=== PATIENT | female | born 1990 | race Caucasian/White ===

== ENCOUNTER 2018-09-09 18:40 | Emergency (ER) | payer OTHER ==
[2018-09-09] MEDS ORDERED: Dexamethasone 10 MG/ML VIAL ONE (19:14)
--- NOTE | 2018-09-09 19:51 | RAD ---
TWO VIEWS CHEST: 09/09/18 HISTORY: Asthma. PA and lateral views of the chest is obtained. The lungs are well aerated. No evidence of active intr athoracic disease seen. No evidence of effusions, pneumonia or pneumothorax seen. IMPRESSION: Unremarkable two views chest. POS: [facility]
== END 2018-09-09 20:27 | disposition home or self-care (01) ==
LOC: ERS 18:40
DX: J45.901 Unspecified asthma with (acute) exacerbation (principal); F41.9 Anxiety disorder, unspecified; F32.9 Major depressive disorder, single episode, unspecified; F17.210 Nicotine dependence, cigarettes, uncomplicated
CPT/HCPCS: 71046; 94640; 94760; J1100; J7620

== ENCOUNTER 2018-09-29 12:26 | Emergency (ER) | payer OTHER ==
[2018-09-29] MEDS ORDERED: Ibuprofen 200 MG TAB ONE (20:03)
[2018-09-29] MEDS ORDERED: Dexamethasone 4 mg/ml Vial ONE (20:03)
== END 2018-09-29 13:35 | disposition left against medical advice (07) ==
LOC: ERS 12:26
DX: Z53.21 Procedure and treatment not carried out due to patient leaving prior to being seen by health care provider (principal)
CPT/HCPCS: J1100

== ENCOUNTER 2018-09-29 18:12 | Emergency (ER) | payer OTHER | END 2018-09-29 20:14 | disposition home or self-care (01) | LOC: ERS 18:12 | DX: H66.92 Otitis media, unspecified, left ear (principal); J01.90 Acute sinusitis, unspecified; B96.89 Other specified bacterial agents as the cause of diseases classified elsewhere; E78.00 Pure hypercholesterolemia, unspecified; I10 Essential (primary) hypertension; J45.909 Unspecified asthma, uncomplicated; F41.9 Anxiety disorder, unspecified; F32.9 Major depressive disorder, single episode, unspecified; F17.210 Nicotine dependence, cigarettes, uncomplicated | CPT/HCPCS: 87804; 99283; J1100 ==